=== PATIENT | female | born 2000 | race Caucasian/White ===

== ENCOUNTER 2019-02-28 12:34 | Outpatient (CLI) | payer OTHER ==
[2019-02-28 14:04] LABS: BHCG - Serum Negative (NEGATIVE); Pregs Control Background? CLEAR/WHITE (CLR/WHITE); Pregs Control Bar Appear? YES (CONTROL BAR)
--- NOTE | 2019-02-28 16:09 | MRI ---
BRAIN MRI WITH AND WITHOUT CONTRAST: 02/28/19 COMPARISON: None. HISTORY: Left sided numbness, facial numbness and left foot numbness. TECHNIQUE: Multiplanar and multisequence MR imaging of the brain provided with and without contrast. FINDINGS: The diffusion weighted imaging demonstrates no evidence for acute infarction. The axial gradient echo imaging demonstrates no evidence for intracranial hemorrhage. Regional bone marrow signal intensity appears within normal limits. The imaged paranasal sinuses and mastoid air cells appear well aerated. There are a few opacified mas toid air cells inferiorly on the right. Arterial flow voids at the axial level of the skull base appear unremarkable on the T2 weighted imagi ng. No significant white signal abnormality seen. No midline shift, mass effect or ventricular enlargemen t. Postcontrast imaging demonstrates no abnormal enhancement within the brain parenchyma. IMPRESSION: No acute findings. POS: OFF
== END 2019-02-28 12:35 | disposition home or self-care (01) ==
LOC: SCSMRI 12:34
PROVIDERS: ATTEND Psychiatry & Neurology Neurology
DX: I66.01 Occlusion and stenosis of right middle cerebral artery (principal)
CPT/HCPCS: 70553; 84703